=== PATIENT | female | born 1970 | race Caucasian/White ===

== ENCOUNTER → 2022-07-26 06:59 | Outpatient (CLI) | payer BC, SELFPAY ==
[2022-07-26 20:37] LABS: COVID19 - ORCAS (NP or Nasal) Negative (Negative)
== END ==
PROVIDERS: PCP Nurse Practitioner Obstetrics & Gynecology; Visit Provider Physician Assistant
DX: Z01.812 Encounter for preprocedural laboratory examination (principal); Z20.822 Contact with and (suspected) exposure to COVID-19
CPT/HCPCS: C9803; U0003

== ENCOUNTER 2022-07-29 09:09 | Day surgery (SDC) | payer BC, SELFPAY ==
--- NOTE | 2022-07-29 | PATH_ITS ---
[facility] Accession Number: [id number] No. of containers..01 Tissue . 01 Material submitted: . colon - DESCENDING COLON BIOPSY . 01 Clinical history: . COLONOSCOPY ENCOUNTER FOR SCREENING FOR MALIGNANT NEOPLASM . 01 Diagnosis: Descending Colon, Biopsy: Hyperplastic polyp. MRV 08/03/2022 1225 Local . 01 Electronically signed: . Christiana Osman MD, Pathologist NPI- [id number] . 01 Gross description: . DESCENDING COLON BIOPSY: Received in formalin is 1 fragment(s) of dinh, soft tissue measuring 0.4 x 0.3 x 0.2 cm submitted entirely in 1 cassette(s) /TRC 08/01/2022 1036 Local . 01 Pathologist provided ICD-10: K63.5 . 01 CPT . 683049 Specimen Comment: A courtesy copy of this report has been sent to [phone] Performed at: 01 [facility] Cytology [address] [place] [address] [address], [place], [place] [id number] MD Giorgio Tavera MD Phone: [phone]
[2022-07-29 09:54] VITALS: BMI 25.8
[2022-07-29 10:01] VITALS: BP 126/81; PULSE 66; RESP 12; TEMP 36.3; O2SAT 100
[2022-07-29] MEDS: LACTATED RINGERS 1,000 ML 42 ML IV (10:09)
--- NOTE | 2022-07-29 11:26 | PM.HP.1 ---
History of Present Illness History of Present Illness Date Patient Seen: 07/29/22 Time Patient Seen: 11:27 Chief complaint: Colonoscopy Narrative: colon cancer screening. this is her first scope. No family history or symptoms concerning for colon cancer Patient History Family & Social History Family History Father Diabetes mellitus Heart disease Hypertension High cholesterol Mother Age: 82 Hypertension Social History: household members spouse Tobacco & Substance use: Smoking Status Never smoker alcohol intake current alcohol intake frequency 0-2 drinks per day Substance Use Type does not use Meds Home Medications and Allergies Home Medications Medication Instructions Recorded Confirmed Type sodium,potassium,mag sulfates 17.5 See Rx Instructions PO .COMPLEX 07/05/22 Rx gram-3.13 gram-1.6 gram oral soln #354 mL (Suprep Bowel Prep Kit) Allergies Allergy/AdvReac Type Severity Reaction Status Date / Time penicillin G [PENICILLIN G] Allergy Unknown childhood Verified 07/29/22 09:53 allergy Review of Systems Review of Systems ROS: Yes All systems reviewed with the patient and are negative except as otherwise documented Exam Vital Signs (past 8 hours): - 07/29/22 10:01 Temperature 97.3 F L Pulse Rate 66 Respiratory Rate 12 Blood Pressure 126/81 Pulse Oximetry 100 Oxygen Delivery Method Room Air Oxygen Delivery Method Room Air Const General: cooperative, healthy appearing and comfortable Nutritional Appearance: average body habitus HENMT Head: normal to inspection, normocephalic and atraumatic Eyes General: appearance normal, both eyes and all related structures Neck Neck: trachea midline Chest Chest: normal inspection of the chest Resp Effort & Inspection: normal respiratory effort and able to speak in complete sentences Auscultation: clear to auscultation bilaterally Cardio Rate: regular rate Rhythm: regular rhythm GI Inspection: normal to inspection Palpation: soft Skin General: no rashes or lesions noted and elasticity normal Neuro General: patient alert, patient awake and patient oriented x3 Extrem General: normal to inspection Psych Appearance: grossly normal Mental Status: mental status grossly normal Judgment: judgment good Assessment & Plan Assessment & Plan narrative: Colon cancer screening using colonoscopy with moderate sedation. COVID-19 COVID-19 status: Negative Time Spent With Patient Critical Care time: I spent a total of [] minutes of critical care time on this patient's care today; this time is exclusive of procedural time.
[2022-07-29] MEDS: fentaNYL 100 MCG/2 ML INJ 175 MCG IV (11:45)
[2022-07-29] MEDS: MIDAZOLAM 5 MG/5 ML VIAL 6 MG IV (11:45)
--- NOTE | 2022-07-29 11:57 | PM.OP.COLON ---
Operative Date/Time/Diagnoses Date of procedure: 07/29/22 Time of procedure: 11:57 Pre-op diagnosis: Colon cancer screening Post-op diagnosis: same Procedure & Clinicians Study performed: Colonoscopy with moderate sedation and cold forceps mucosal biopsy in the descending colon Same procedure as scheduled: Yes Indications: Colon cancer screening Surgeon: Heidi Greene Procedure Notes Procedure in detail: Preop diagnosis: Colon cancer screening Postop diagnosis: Same Operative procedure: Colonoscopy with cold forceps biopsy Surgeon: Vandana Greene MD Anesthetic: 175 mcg fentanyl 6 mg Versed Findings: Single sessile abnormality of the mucosa in the descending colon approximately 3 mm in size. Taken with a cold forceps biopsy possibly represents a sessile serrated adenoma Procedure: Patient placed in lateral position. rectal exam performed showing normal tone, no masses. Scope was inserted and advanced to the ileocecal valve with minimal difficulty. Insufflation and extraction of the scope, including retro flex, had the above findings. Impression; Normal colonoscopy with the exception of a small descending colon abnormality that needs final path to determine frequency of screening. Plan; await path results Specimen(s): other (descending colon polyp) Complications: none Post-procedure Recommendations: Will call with biopsy results Follow up: as needed Disposition: PACU
[2022-07-29 12:01] VITALS: BP 105/56; PULSE 59; RESP 11; TEMP 36.6; O2SAT 98
[2022-07-29 12:09] VITALS: BP 98/59; PULSE 66; RESP 13; O2SAT 99
[2022-07-29 12:11] VITALS: BP 113/81; PULSE 66; RESP 12; O2SAT 100
[2022-07-29 12:17] VITALS: BP 118/76; PULSE 64; RESP 14; TEMP 36.2; O2SAT 99
[2022-07-29 13:00] VITALS: BP 113/68; PULSE 66; RESP 16; O2SAT 99
--- NOTE | 2022-07-29 13:08 | SUR.PHASEII ---
PT DC to home after waiting for ride.
== END 2022-07-29 13:05 | disposition home or self-care (01) ==
PROVIDERS: PCP Nurse Practitioner Obstetrics & Gynecology; Referring Provider Surgery; Visit Provider Surgery
PROC: 0DJD8ZZ Inspection of Lower Intestinal Tract, Via Natural or Artificial Opening Endoscopic (ICD-10-PCS; CPT 45378; principal; 2022-07-29 11:00)
DX: Z12.11 Encounter for screening for malignant neoplasm of colon (principal); K63.5 Polyp of colon
CPT/HCPCS: 45380; J2250; J3010

== ENCOUNTER → 2024-08-01 09:19 | Outpatient (CLI) | payer BC, SELFPAY ==
[2024-08-01 19:46] LABS: Hematocrit 42.5 % (36-46); Hemoglobin 14.5 g/dL (12.0-16.0); Mean Corpuscular HGB Conc 34.2 % (30-36); Mean Corpuscular Volume 96.5 fL (80-100); Platelet Count 284 X10^3/uL (150-400); Red Cell Distribution Width 13.1 % (11.6-14.8); White Blood Cell Count 5.7 X10^3/uL (4.5-11.0)
[2024-08-01 19:59] LABS: Alanine Aminotransferase 31 IU/L (<35); Albumin 4.4 g/dL (3.5-5.0); Albumin Globulin Ratio 1.4 (1.0-2.8); Alkaline Phosphatase 64 U/L (38-126); Aspartate Aminotransferase 34 IU/L (14-36); BUN Creatinine Ratio 19.8 (6-22); Bilirubin Total 0.8 mg/dL (0.2-1.3); Blood Urea Nitrogen 16 mg/dL (7-17); Calcium 9.8 mg/dL (8.4-10.2); Carbon Dioxide 28 mmol/L (22-32); Chloride 99 mmol/L (98-107); Cholesterol 273 mg/dL (140-199); Estimated Glomerular Filt Rate > 60 mL/min (>60); Globulin 3.2 g/dL (1.7-4.1); Glucose 101 mg/dL (70-100); HDL Cholesterol 88 mg/dL (40-60); HEMOLYSIS 22 (0-50); LDL Cholesterol Calculated 172 mg/dL (<100); Potassium 4.6 mmol/L (3.4-5.1); Sodium 133 mmol/L (137-145); Total Protein 7.6 g/dL (6.3-8.2); Triglycerides 63 mg/dL (35-150)
[2024-08-01 20:28] LABS: TSH w/ Reflex to FT4 1.29 uIU/mL (0.47-4.68)
== END ==
PROVIDERS: PCP Physician Assistant; Visit Provider Physician Assistant Medical
DX: Z13.29 Encounter for screening for other suspected endocrine disorder (principal); Z13.1 Encounter for screening for diabetes mellitus; Z13.6 Encounter for screening for cardiovascular disorders
CPT/HCPCS: 80053; 80061; 84443; 85027